=== PATIENT | female | born 1990 | race Caucasian/White ===

== ENCOUNTER 2018-04-02 19:49 | Emergency (ER) | payer OTHER ==
[~2018-04-02] VITALS: Ht 157.5 cm; Wt 66.3 kg
[2018-04-02 21:36] LABS: BASOPHIL % 1.1 % (0-2); PLATELET COUNT 291 x10^3mcL (130-400); RED CELL DISTRIBUTION WIDTH 13.2 % (11.5-14.5)
[2018-04-02 22:37] VITALS: BP 105/64
== END 2018-04-02 22:37 | disposition home or self-care (01) ==
LOC: ED 19:49
PROVIDERS: Emergency Medicine
DX: O20.0 Threatened abortion (principal)
CPT/HCPCS: 36415

== ENCOUNTER 2019-07-17 07:59 | Emergency (ER) | payer OTHER ==
[~2019-07-17] VITALS: Ht 157.5 cm; Wt 67.8 kg
[2019-07-17 08:03] VITALS: Ht 157.5 cm; Wt 67.8 kg
[2019-07-17 09:40] VITALS: BP 120/81
== END 2019-07-17 09:40 | disposition home or self-care (01) ==
LOC: ED 07:59
DX: S46.912A Strain of unspecified muscle, fascia and tendon at shoulder and upper arm level, left arm, initial encounter (principal); R05 Cough; X58.XXXA Exposure to other specified factors, initial encounter; Y93.89 Activity, other specified; Y92.89 Other specified places as the place of occurrence of the external cause; Y99.0 Civilian activity done for income or pay
CPT/HCPCS: J1885